=== PATIENT | male | born 1965 | race Caucasian/White ===

== ENCOUNTER → 2020-11-07 09:25 | Outpatient (CLI) | payer OTHER, SELFPAY | PROVIDERS: PCP Physician Assistant Medical; Referring Provider Physician Assistant Medical; Visit Provider Physician Assistant Medical | DX: M75.41 Impingement syndrome of right shoulder (principal); Z53.20 Procedure and treatment not carried out because of patient's decision for unspecified reasons ==

== ENCOUNTER → 2023-06-02 11:26 | Outpatient (CLI) | payer OTHER, SELFPAY ==
--- NOTE | 2023-06-04 04:04 | DI.NM.S_ITS ---
DATE OF SERVICE: 06/02/2023 PROCEDURE PERFORMED: Exercise treadmill stress and rest myocardial perfusion imaging with gating to assess ejection fraction and regional wall motion. ORDERING PROVIDER: Irasema Millard NP INDICATIONS: The patient is a 57-year-old obese, hypertensive male with an abnormal EKG. CARDIAC STRESS: The patient was able to exercise for 6 minutes 3 seconds on a standard Lm protocol, suggesting moderate to severely reduced exercise capacity with an RORY of +29%, achieving 7.0 METs. He had a normal heart rate and blood pressure response to exercise. He had no chest discomfort or other anginal symptoms but moderate exertional dyspnea. His resting ECG is normal with normal ST segments. There are no significant ST-segment shifts or arrhythmias with stress. At 4 minutes, 45 seconds of exercise at a heart rate of 150 BPM, 26.3 millicuries of technetium-99m Myoview was injected and he was imaged 15 minutes later using a gated SPECT acquisition protocol. The day prior while at rest, he had been injected with 25.8 millicuries of technetium- 99m Myoview and imaged 20 minutes later, again using a gated SPECT acquisition protocol. FINDINGS: 1. Raw data: There is fairly good myocardial tracer uptake although with some slight chest wall attenuation noted. The lung/heart ratio is normal at 0.37 with a normal TID ratio of 0.86. 2. Quantitated gated SPECT: Post-stress ejection fraction is estimated at 69% without any focal wall motion abnormality. The resting ejection fraction is estimated at 62% but visually appears identical to that of the post stress ejection fraction. The resting end-diastolic volume is at the upper limits of normal at 148 mL. 3. Myocardial perfusion imaging: Post-stress supine images shows a fairly normal myocardial perfusion pattern with a very subtle defect in the inferior wall that resolves on the prone images, consistent with diaphragmatic attenuation. There are no other perfusion defects. The resting images show an identical perfusion pattern without any areas of improvement. IMPRESSION: 1. Normal exercise nuclear perfusion study. 2. Mild fixed inferior defect that resolves on prone imaging, consistent with diaphragmatic attenuation artifact. There is no compelling evidence for any myocardial ischemia or previous myocardial infarction. 3. Normal left ventricular function without any focal wall motion abnormality. While left ventricular volumes are borderline increased, this is likely due to his large body size. 4. Moderately reduced exercise capacity without angina or ECG evidence of ischemia. Roxana Hoover - Patti/roby doc#: [id number]/job#: [id number] dd: 06/03/2023 17:07:00 dt: 06/04/2023 03:58:00 DICTATING MD/COPIES TO: Brody Weiss MD; Irasema Millard M.D. COPIES MNE: ELISA;
== END ==
PROVIDERS: PCP Physician Assistant Medical; Referring Provider Nurse Practitioner Family; Visit Provider Nurse Practitioner Family
DX: R94.31 Abnormal electrocardiogram [ECG] [EKG] (principal); R07.9 Chest pain, unspecified; I10 Essential (primary) hypertension; E66.01 Morbid (severe) obesity due to excess calories; Z68.41 Body mass index [BMI] 40.0-44.9, adult
CPT/HCPCS: 78452; 93017; A9502

== ENCOUNTER → 2023-07-14 10:42 | Outpatient (CLI) | payer OTHER, SELFPAY ==
--- NOTE | 2023-07-14 10:43 | DI.RAD.S_ITS ---
PROCEDURE: XR KNEE LT 3V INDICATIONS: Left knee pain TECHNIQUE: 3 views of the knee were acquired. COMPARISON: None. FINDINGS: Bones: No fractures or dislocations. No suspicious bony lesions. Tricompartmental arthritic change most severe medially. Soft tissues: Moderate joint effusion. No suspicious soft tissue calcifications. IMPRESSION: No visualized acute fracture or dislocation. However, if clinical concern and/or pain persist, short interval imaging followup in 7-10 days is recommended, as occult injury cannot be definitively excluded. Dictated by: Desiree Gaffney M.D. on 07/14/2023 at 13:46 Approved by: Desiree Gaffney M.D. on 07/14/2023 at 13:47
== END ==
PROVIDERS: Referring Provider Nurse Practitioner Family; Visit Provider Nurse Practitioner Family
DX: M25.562 Pain in left knee (principal)
CPT/HCPCS: 73562

== ENCOUNTER 2023-09-22 18:08 | Emergency (ER) | payer OTHER, SELFPAY ==
[2023-09-22] VITALS (14 sets, daily range): BP systolic 121–144; BP diastolic 66–88; PULSE 64–80; RESP 12–21; TEMP 37; O2SAT 94–98; BMI 40.5
--- NOTE | 2023-09-22 18:24 | DI.RAD.S_ITS ---
PROCEDURE: XR CHEST 1V INDICATIONS: chest pain TECHNIQUE: One view of the chest was acquired. COMPARISON: None. FINDINGS: Surgical changes and devices: None. Lungs and pleura: Lungs are clear. No pleural effusions or pneumothorax. Mediastinum: Mediastinal contours appear normal. Heart size is normal. Bones and chest wall: No suspicious bony lesions. Overlying soft tissues appear unremarkable. IMPRESSION: No acute cardiopulmonary abnormality is seen. Dictated by: Anton Ceja M.D. on 09/22/2023 at 19:31 Approved by: Anton Ceja M.D. on 09/22/2023 at 19:31
[2023-09-22 18:43] LABS: Add Manual Diff / Slide Review NO; Basophils Absolute Auto 100 /uL (0-100); Basophils Percent Auto 0.8 % (0-2); Eosinophils Absolute Auto 0 /uL (0-450); Eosinophils Percent Auto 0.4 % (2-4); Hematocrit 44.7 % (41-53); Hemoglobin 15.2 g/dL (13.5-17.5); Lymphocytes Absolute Auto 800 /uL (1100-4500); Lymphocytes Percent Auto 8.6 % (25-40); Mean Corpuscular Hemoglobin 31.6 PG (26-34); Mean Corpuscular Volume 93.1 fL (80-100); Monocytes Absolute Auto 600 /uL (0-900); Monocytes Percent Auto 6.3 % (3-14); Neutrophils Absolute Auto 7500 /uL (1500-7000); Neutrophils Percent Auto 83.9 % (50-75); Platelet Count 195 X10^3/uL (150-400); Red Cell Distribution Width 13.1 % (11.6-14.8); White Blood Cell Count 8.9 X10^3/uL (4.5-11.0)
[2023-09-22 18:49] LABS: INR 1.1 (0.9-1.3); Prothrombin Time 12.7 SECONDS (9.4-12.5)
[2023-09-22 18:52] LABS: PTT Partial Thromboplastin Tim 33 SECONDS (25.1-36.5)
[2023-09-22] MEDS: ONDANSETRON 4 MG/2 ML INJ IV (19:01)
[2023-09-22] MEDS: SODIUM CHLORIDE 0.9% 1,000 ML 1000 ML IV ×2 (19:02→23:15)
[2023-09-22 19:10] LABS: Alanine Aminotransferase 32 IU/L (<50); Albumin 4.7 g/dL (3.5-5.0); Albumin Globulin Ratio 1.5 (1.0-2.8); Alkaline Phosphatase 89 U/L (38-126); Aspartate Aminotransferase 29 IU/L (17-59); BUN Creatinine Ratio 20.5 (6-22); Bilirubin Total 0.8 mg/dL (0.2-1.3); Blood Urea Nitrogen 17 mg/dL (9-20); Calcium 9.6 mg/dL (8.4-10.2); Carbon Dioxide 28 mmol/L (22-32); Chloride 106 mmol/L (98-107); Creatine Kinase 73 U/L (55-170); Estimated Glomerular Filt Rate > 60 mL/min (>60); Globulin 3.2 g/dL (1.7-4.1); Glucose 123 mg/dL (70-100); HEMOLYSIS 18 (0-50); Lipase 45 U/L (23-300); Magnesium 2.2 mg/dL (1.6-2.3); Potassium 4.1 mmol/L (3.4-5.1); Sodium 140 mmol/L (137-145); Total Protein 7.9 g/dL (6.3-8.2)
[2023-09-22 19:21] LABS: Troponin I < 0.012 ng/mL (0.01-0.034)
--- NOTE | 2023-09-22 21:08 | PC.NURSE ---
Patient reports he wants to walk to the restroom. Patient stood at bedside with stand by assist and was swaying on feet for about 5 seconds before he was able to stand steadily. He attempted to use urinal after he was advised to not walk to the restroom. Patient sat back down after 15 seconds and states it was a false alarm. Reports room-spinning sensation when he turns his head. When lying down and not moving he does not have any room spinning sensation. No history of same, this started 2 days ago and has not been able to get out of bed until now. Reports he feels better after 1L of fluids and may have been dehydrated. Only recent change he reports is he just started meloxicam. Recently had a negative stress test.
--- NOTE | 2023-09-22 23:07 | ED.GENADULT ---
HPI - General Adult General Chief complaint: Dizziness Stated complaint: dizzy, unable to stand Time Seen by Provider: 09/22/23 22:58 Source: patient Mode of arrival: Wheelchair History of Present Illness HPI narrative: 57-year-old male with 2 days duration of loose stools without black or red color, nausea and vomiting x2 episodes without black or red color, feeling dizzy, also has some spinning vertigo-like symptoms to his dizziness. No injury or trauma to the head. He has some headache that is global, improving without specific treatment. No fevers or chills. He did recently start meloxicam medication, believes that this is the cause of his symptoms. He has no hives or itching or rash, no swelling to lips or tongue. He denies abdominal discomfort. He denies cough, chest pain, shortness of breath. Denies fevers, chills. NO focal weakness to face arms legs. No problems with speech, vision, senstaion. Related Data Previous Rx's Medication Instructions Recorded meclizine 25 mg tablet 25 mg PO TID dizziness #21 tabs 09/23/23 Allergies Allergy/AdvReac Type Severity Reaction Status Date / Time No Known Drug Allergies Allergy Unverified 07/14/23 10:22 Patient History Social History Smoking Status: Unknown if ever smoked Smoking Status: Unknown if ever smoked Substance Use Type: does not use Exam Initial Vital Signs Initial Vital Signs: Vital Signs Temperature 98.6 F 09/22/23 18:10 Pulse Rate 79 09/22/23 18:10 Respiratory Rate 14 09/22/23 18:10 Blood Pressure 143/88 H 09/22/23 18:10 Pulse Oximetry 95 09/22/23 18:10 Oxygen Delivery Method Room Air 09/22/23 18:10 Const General: cooperative HENMT Head: atraumatic Ears: TM's normal bilaterally Face and sinus: face symmetric Mouth: moist mucous membranes Eyes Conjunctivae: conjunctivae normal Sclera: sclerae normal Pupils: PERRL EOM: EOM intact bilaterally Neck Neck: normal visual inspection, trachea midline and No JVD Resp Effort & Inspection: normal respiratory effort, able to speak in complete sentences, no respiratory distress and no use of accessory muscles Auscultation: clear to auscultation bilaterally, no rales, no rhonchi and no wheezes Cardio Rate: regular rate Rhythm: regular rhythm Heart Sounds: no murmurs GI Palpation: soft and No tender Back/Spine/Pelvis Back: No CVA tenderness Cervical Spine: No pain with cervical ROM Skin General: no rashes or lesions noted and No petechiae Neuro General: patient alert and no focal motor deficits Speech: speech normal Other: Cranial nerves intact, good motor srength 5/5 upper and lower exremities, sensation intact to light touch face arms legs, normal finger to nose testing Extrem General: no clubbing, cyanosis or edema, no pedal edema and no calf tenderness Psych Mental Status: mental status grossly normal Attitude: cooperative Thought Content: normal Course Orders Ordered: Discontinued Medications Sodium Chloride (Normal Saline 0.9%) 1,000 mls @ 1,000 mls/hr IV BOLUS ONE Stop: 09/22/23 19:56 Last Infusion: 09/22/23 21:08 Dose: Infused Documented By: Admin: 09/22/23 19:02 Dose: 1,000 mls/hr Documented By: ALAYNA Sodium Chloride (Normal Saline 0.9%) 1,000 mls @ 1,000 mls/hr IV BOLUS ONE Stop: 09/23/23 00:05 Last Infusion: 09/23/23 00:22 Dose: Infused Documented By: Admin: 09/22/23 23:15 Dose: 1,000 mls/hr Documented By: COOKIE Meclizine HCl (Meclizine Hcl 12.5 Mg Tablet) 25 mg PO NOW ONE Stop: 09/22/23 23:07 Last Admin: 09/22/23 23:15 Dose: 25 mg Documented By: COOKIE Ondansetron HCl (Ondansetron 4 Mg/2 Ml Inj) 4 mg IV NOW ONE Stop: 09/22/23 18:58 Last Admin: 09/22/23 19:01 Dose: 4 mg Documented By: ALAYNA Vital Signs Vital signs: Vital Signs - 8 hr 09/22/23 18:10 09/22/23 18:15 09/22/23 18:15 Temperature 98.6 F Pulse Rate 79 80 Respiratory Rate 14 Blood Pressure 143/88 H 143/88 H Pulse Oximetry 95 95 Oxygen Delivery Method Room Air 09/22/23 18:30 09/22/23 18:34 09/22/23 18:34 Temperature Pulse Rate 77 76 Respiratory Rate Blood Pressure 133/79 Pulse Oximetry 94 94 Oxygen Delivery Method 05/16/24 19:00 09/22/23 19:00 09/22/23 19:30 Temperature Pulse Rate 71 66 Respiratory Rate Blood Pressure 134/71 Pulse Oximetry 95 97 Oxygen Delivery Method 09/22/23 19:30 09/22/23 20:00 09/22/23 20:00 Temperature Pulse Rate 70 Respiratory Rate Blood Pressure 144/81 H 141/77 H Pulse Oximetry 95 Oxygen Delivery Method 09/22/23 20:30 09/22/23 20:30 09/22/23 21:00 Temperature Pulse Rate 69 67 Respiratory Rate 12 Blood Pressure 136/76 Pulse Oximetry 95 96 Oxygen Delivery Method 09/22/23 21:00 09/22/23 21:30 09/22/23 21:30 Temperature Pulse Rate 66 Respiratory Rate 18 Blood Pressure 132/70 125/66 Pulse Oximetry 98 Oxygen Delivery Method 09/22/23 22:00 09/22/23 22:00 09/22/23 22:30 Temperature Pulse Rate 68 68 Respiratory Rate 15 13 Blood Pressure 121/71 Pulse Oximetry 97 98 Oxygen Delivery Method 09/22/23 22:30 09/22/23 23:00 09/22/23 23:00 Temperature Pulse Rate 72 Respiratory Rate 21 Blood Pressure 129/75 136/76 Pulse Oximetry 97 Oxygen Delivery Method 09/22/23 23:30 09/22/23 23:30 09/23/23 00:01 Temperature Pulse Rate 64 73 Respiratory Rate 15 23 Blood Pressure 136/72 Pulse Oximetry 98 97 Oxygen Delivery Method 09/23/23 00:02 09/23/23 00:02 09/23/23 00:30 Temperature Pulse Rate 75 66 Respiratory Rate 16 15 Blood Pressure 164/77 H Pulse Oximetry 98 98 Oxygen Delivery Method 09/23/23 00:31 09/23/23 00:31 09/23/23 01:00 Temperature Pulse Rate 67 69 Respiratory Rate 16 17 Blood Pressure 140/76 Pulse Oximetry 97 97 Oxygen Delivery Method 09/23/23 01:00 Temperature Pulse Rate Respiratory Rate Blood Pressure 152/83 H Pulse Oximetry Oxygen Delivery Method Medical Decision Making Differential Diagnosis Differential Diagnosis: dizziness dehydration due to diarrhea, labyrinthits, doubt posteror stroke Lab Data Lab results reviewed: Yes I reviewed the patient's lab results. 09/22/23 18:31 09/22/23 18:31 Labs: Lab Results 09/22/23 Range/Units 18:31 WBC 8.9 (4.5-11.0) X10^3/uL RBC 4.80 (4.5-5.9) X10^6/uL Hgb 15.2 (13.5-17.5) g/dL Hct 44.7 (41-53) % MCV 93.1 (80-100) fL MCH 31.6 (26-34) PG MCHC 34.0 (30-36) % RDW 13.1 (11.6-14.8) % Plt Count 195 (150-400) X10^3/uL Neut % (Auto) 83.9 H (50-75) % Lymph % (Auto) 8.6 L (25-40) % [place] % (Auto) 6.3 (3-14) % Eos % (Auto) 0.4 L (2-4) % Baso % (Auto) 0.8 (0-2) % Neut # (Auto) 7500 H (1927-6402) /uL Lymph # (Auto) 800 L (6333-6891) /uL [place] # (Auto) 600 (0-900) /uL Eos # (Auto) 0 (0-450) /uL Baso # (Auto) 100 (0-100) /uL PT 12.7 H (9.4-12.5) SECONDS INR 1.1 (0.9-1.3) APTT 33 (25.1-36.5) SECONDS Sodium 140 (137-145) mmol/L Potassium 4.1 (3.4-5.1) mmol/L Chloride 106 (98-107) mmol/L Carbon Dioxide 28 (22-32) mmol/L BUN 17 (9-20) mg/dL Creatinine 0.83 (0.66-1.25) mg/dL Estimated GFR > 60 (>60) mL/min BUN/Creatinine Ratio 20.5 (6-22) Glucose 123 H (70-100) mg/dL Calcium 9.6 (8.4-10.2) mg/dL Magnesium 2.2 (1.6-2.3) mg/dL Total Bilirubin 0.8 (0.2-1.3) mg/dL AST 29 (17-59) IU/L ALT 32 (<50) IU/L Alkaline Phosphatase 89 (38-126) U/L Total Creatine Kinase 73 (55-170) U/L Troponin I < 0.012 (0.01-0.034) ng/mL Total Protein 7.9 (6.3-8.2) g/dL Albumin 4.7 (3.5-5.0) g/dL Globulin 3.2 (1.7-4.1) g/dL Albumin/Globulin Ratio 1.5 (1.0-2.8) Lipase 45 (23-300) U/L Urine Dip Bedside Urine Glucose Negative Bedside Urine Bilirubin - Negative Bedside Urine Ketone + 15 Urine Specific [place] 1.015 Bedside Urine Occult Blood - Negative Bedside Urine pH 6 Bedside Urine Protein - Negative Bedside Urine Urobilinogen - Negative Bedside Urine Nitrite - Negative Bedside Urine Leukocytes - Negative Esterase Point of care testing: Urine Dip Bedside Urine Glucose Negative Bedside Urine Bilirubin - Negative Bedside Urine Ketone + 15 Urine Specific [place] 1.015 Bedside Urine Occult Blood - Negative Bedside Urine pH 6 Bedside Urine Protein - Negative Bedside Urine Urobilinogen - Negative Bedside Urine Nitrite - Negative Bedside Urine Leukocytes - Negative Esterase ECG Data Attestation: I personally reviewed and interpreted this ECG as follows: Interpretation: Normal sinus rhythm rate 63, no ST segment elevation/depression obvious, normal ID inerval, normal QRS interval, normal QTc interval MDM Narrative Medical decision making narrative: Dizziness after new meloxicam medication and reported non-melanotic non-red stools, also some component of slight vertigo with isolated head and body movements. Nonfocal neuro exam with good gait and [id number], doubt posterior acute stroke. Mild global headache further improved. Offered CT Head imaging, declined. Electrolytes negative. Hb normal. EKG unremakrable including inervals. Troponin negative. IVF bolus, IV zofran, PO meclizine given. Patient ambulated and took PO fluids well afer second liter IVF bolus. thinks the new meloxicam was cause of symptoms, avoid/discontinue for now. Possible viral illness with dehydration and labyrinthitis, symptomatically inproved. Home with , return precautions discussed. Critical Care Time Critical Care Time Critical Care Time: Yes Total Critical Care Time: 35 Attestation: The high probability of a clinically significant, sudden or life threatening deterioration of the [cardiopulmonary, neurologic] system(s) required my full and direct attention, intervention and personal management. The aggregate critical care time was [35] minutes. This time is in addition to time spent performing reported procedures but includes the following: [x] Data Review and interpretation [x] Patient assessment and monitoring of vital signs [x] Documentation [x] Medication orders and management Discharge Plan Departure Patient Disposition: Home Clinical Impression: Diarrhea, Vertigo, Vomiting, Dizziness Instructions: DI for Vomiting -- Adult, Nausea and Vomiting-Adult Activity Restrictions/Additional Instructions: Recent new medication meloxicam. Subsequent nausea and vomiting, also diarrhea, none of which seem to be bloody or black in color. Also some dizziness, particularly with head or body movements. We did discuss CT head/brain imaging, declined. Oral meclizine antihistamine given, which can be helpful for labyrinthitis inflammation of the middle ear system, if that is the cause for your dizziness, seems less likely a cerebellar stroke. Suspected component of dehydration by the amount of vomiting and diarrhea you been having, IV fluids given. Symptoms improved, able to ambulate, not fully resolve but able to ambulate any functional basis. Consider use of meclizine for the next few days. Encouraged oral hydration. For now perhaps avoid further doses of meloxicam in case that is related to your symptoms above. Recheck symptoms with your regular provider next couple of days. Return to this/nearest emergency department for any change worsening symptoms or any concerns prior Prescriptions: New meclizine 25 mg tablet 25 mg PO TID Qty: 21 0RF Referrals: Irasema Millard ARNP [Primary Care Provider] - Stand Alone Forms: Patient Portal/API
[2023-09-22] MEDS: MECLIZINE HCL 12.5 MG TABLET 25 MG PO (23:15)
[2023-09-23 00:01] VITALS: PULSE 73; RESP 23; O2SAT 97
[2023-09-23 00:02] VITALS: BP 164/77; PULSE 75; RESP 16; O2SAT 98
[2023-09-23 00:30] VITALS: PULSE 66; RESP 15; O2SAT 98
[2023-09-23 00:31] VITALS: BP 140/76; PULSE 67; RESP 16; O2SAT 97
[2023-09-23 01:00] VITALS: BP 152/83; PULSE 69; RESP 17; O2SAT 97
[2023-09-23 01:30] VITALS: BP 153/79; PULSE 72; RESP 16; O2SAT 99
== END 2023-09-23 01:39 | disposition home or self-care (01) ==
PROVIDERS: Emergency Provider Emergency Medicine; PCP Nurse Practitioner Family
DX: R19.7 Diarrhea, unspecified (principal); R42 Dizziness and giddiness; R11.10 Vomiting, unspecified
CPT/HCPCS: 36415; 71045; 80053; 81003; 82550; 83690; 83735; 84484; 85025; 85610; 85730; 93005; 93010; 96361; 96374; 99284; J2405

== ENCOUNTER → 2024-03-16 | Outpatient (CLI) | payer OTHER, SELFPAY ==
--- NOTE | 2024-03-16 15:37 | DI.MRI.S_ITS ---
PROCEDURE: MR KNEE LT WO CON INDICATIONS: CHRONIC PAIN IN BOTH KNEES TECHNIQUE: Noncontrast sagittal PD fast spin echo and T2 fast spin echo with fat saturation, sagittal 3-D FLASH with fat saturation; coronal T1 spin echo and PD fast spin echo with fat saturation, and axial PD fast spin echo with fat saturation through the knee. COMPARISON: [facility], CR, XR KNEE ARTHRITIC SERIES LT, 07/27/2023, 10:32. [facility], MR, MR KNEE RT WO CON, 03/16/2024, 15:53. FINDINGS: Image quality: Fair; there is excessive fat saturation on the fluid sensitive sequences, which limits assessment of tendon integrity to some extent. Bones: Extensive marrow edema is present around the anterior-medial tibial plateau secondary to a minimally depressed subchondral insufficiency fracture (03/26; 04/26). Subchondral cysts are present at the pseudoarticulating surfaces of the posterior tibia and fibular head (04/01) as well as the articulating surfaces of the patella (11/16). The bone marrow signal is otherwise normal. There is no other acute fracture or dislocation. Joints: There is a small knee joint effusion. There is mild knee osteoarthritis. There is a 0.7 cm in the posterior joint capsule medial to the posterior cruciate ligament (11/24). Gonzales's cyst: None. Menisci: There is a complex tear of the body and posterior horn of the medial meniscus with extension toward the posterior root attachment and 7 mm of meniscal body extrusion into the medial gutter (04/27). The lateral meniscus is normal. The posterior root attachments are otherwise normal. Cruciate ligaments: The anterior cruciate ligament is normal. The posterior cruciate ligament is normal. Collateral ligaments: The medial collateral ligament complex is normal, although there are chronic avulsions of the meniscofemoral and meniscotibial ligaments supporting the medial meniscus. The lateral collateral ligament complex is intermediate in signal. Popliteus Muscle/Tendon: The popliteus muscle and tendon are normal. Extensor mechanism: There is mild intermediate signal and thickening of the quadriceps tendon as well as the patellar tendon. The medial and lateral patellar retinacular attachments are normal. Articular cartilage: There is full-thickness cartilage loss in the weight-bearing medial compartment (04/27). Multifocal areas of surface fibrillation are present at the weight-bearing lateral compartment. Areas of partial thickness chondral loss and surface fibrillation are present at the patellofemoral compartment (7/15). Other: Mild prepatellar and infrapatellar subcutaneous edema. Partially identified superficial varicose veins. At that IMPRESSION: 1. Acute-subacute anterior-medial tibial plateau subchondral insufficiency fracture with associated reactive marrow edema. 2. Complex tear of the body and posterior horn of the medial meniscus with meniscal body extrusion. 3. Mild knee osteoarthritis with small knee joint effusion, 0.7 cm intra-articular body, and associated articular cartilage defects. 4. Chronic injuries involving the medial and lateral collateral ligament complexes. 5. Mild quadriceps tendinosis. 6. Mild patellar tendinosis. Dictated by: Rafita Swan M.D. on 03/19/2024 at 9:27 Approved by: Rafita Swan M.D. on 03/19/2024 at 9:54
--- NOTE | 2024-03-16 15:37 | DI.MRI.S_ITS ---
PROCEDURE: MR KNEE RT WO CON INDICATIONS: CHRONIC PAIN IN BOTH KNEES TECHNIQUE: Noncontrast sagittal PD fast spin echo and T2 fast spin echo with fat saturation, sagittal 3-D FLASH with fat saturation; coronal T1 spin echo and PD fast spin echo with fat saturation, and axial PD fast spin echo with fat saturation through the knee. COMPARISON: None. FINDINGS: Image quality: Excellent. Menisci: Peripheral displacement of medial meniscus bowing medial collateral ligament. Oblique tear involving posterior horn of medial meniscus is seen extending to superior articulating surface. The lateral meniscus is intact. The meniscal root ligaments appear intact. Cruciate ligaments: The anterior and posterior cruciate ligaments appear intact. Medial structures: The medial collateral ligament appears mildly thickened. Visualized portions of the pes anserinus tendons appear normal. No abnormal bursal fluid. Lateral structures: The lateral collateral ligament, long and short heads of the biceps femoris tendon appear intact. The popliteus tendon appears normal. Iliotibial band appears normal. Anterior structures: The quadriceps and patellar tendons appear intact. Patellar alignment is normal. No femoral trochlear dysplasia or ventral trochlear prominence. No edema in the infrapatellar fat pad. Bones and cartilage: Moderate tricompartmental osteoarthritis and chondromalacia more notably in medial femoral tibial compartment is seen. There is also moderate osteoarthritis involving proximal tibial fibular joint. No acute fracture or dislocation. No suspicious bony lesions. Joint space: There is small knee joint fluid. No Gonzales's cyst. Normal appearing synovial plicae are incidentally noted. IMPRESSION: 1. Moderate tricompartmental osteoarthritis. No acute fracture or dislocation. Moderate osteoarthritic changes involving proximal tibial fibular articulation. Small joint effusion, no loose bodies. 2. Oblique tear involving posterior horn of medial meniscus extending to superior articulating surface. No lateral meniscal tear. 3. Low-grade MCL sprain. 4. The cruciate ligaments are intact. Dictated by: Prashant Finn M.D. on 03/16/2024 at 22:59 Approved by: Prashant Finn M.D. on 03/16/2024 at 23:02
== END ==
PROVIDERS: PCP Nurse Practitioner Family; Referring Provider Nurse Practitioner Family; Visit Provider Nurse Practitioner Family
DX: S83.232A Complex tear of medial meniscus, current injury, left knee, initial encounter (principal); S83.241A Other tear of medial meniscus, current injury, right knee, initial encounter; S82.142A Displaced bicondylar fracture of left tibia, initial encounter for closed fracture; M17.0 Bilateral primary osteoarthritis of knee; S83.411A Sprain of medial collateral ligament of right knee, initial encounter; M25.461 Effusion, right knee; M25.462 Effusion, left knee; M25.561 Pain in right knee; M25.562 Pain in left knee; G89.29 Other chronic pain
CPT/HCPCS: 73721

== ENCOUNTER → 2024-05-25 10:49 | Outpatient (CLI) | payer OTHER, SELFPAY ==
--- NOTE | 2024-05-25 11:12 | EKG_ITS ---
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
[2024-05-25 11:13] LABS: Add Manual Diff / Slide Review NO; Basophils Absolute Auto 0 /uL (0-100); Basophils Percent Auto 0.9 % (0-2); Eosinophils Absolute Auto 100 /uL (0-450); Eosinophils Percent Auto 2.2 % (2-4); Hematocrit 44.5 % (41-53); Hemoglobin 15.1 g/dL (13.5-17.5); Lymphocytes Absolute Auto 900 /uL (1100-4500); Lymphocytes Percent Auto 20.7 % (25-40); Mean Corpuscular HGB Conc 34.1 % (30-36); Mean Corpuscular Hemoglobin 32.3 PG (26-34); Mean Corpuscular Volume 94.7 fL (80-100); Monocytes Absolute Auto 400 /uL (0-900); Monocytes Percent Auto 8.1 % (3-14); Neutrophils Absolute Auto 3100 /uL (1500-7000); Neutrophils Percent Auto 68.1 % (50-75); Platelet Count 190 X10^3/uL (150-400); Red Cell Distribution Width 13.1 % (11.6-14.8); White Blood Cell Count 4.5 X10^3/uL (4.5-11.0)
[2024-05-25 11:23] LABS: Hemoglobin A1C% w Est Avg Glu 5.6 % (4.0-6.0)
[2024-05-25 11:55] LABS: Appearance Urine UA CLEAR; Bilirubin Urine UA NEGATIVE (NEGATIVE); Color Urine UA YELLOW; Glucose Urine UA NEGATIVE (Negative); Ketones Urine UA NEGATIVE (NEGATIVE); Leukocyte Esterase Urine UA NEGATIVE (NEGATIVE); Nitrite Urine UA NEGATIVE (Negative); Occult Blood Urine UA NEGATIVE (Negative); Protein Urine UA NEGATIVE (Negative); Specific Gravity Urine UA <=1.005 (1.000-1.035); Urobilinogen Urine UA 0.2 E.U./dL (0.2)
[2024-05-25 11:56] LABS: Urine Volume 10mL (spun)
[2024-05-25 12:05] LABS: Bacteria Urine None Seen; Culture Indicated Urine Cult Not Indicated; RBC Urine None Seen (0-5/HPF); Squamous Epithelial Cell Urine None Seen (0-5/HPF); WBC Urine None Seen (0-5/HPF)
[2024-05-25 12:06] LABS: BUN Creatinine Ratio 20.9 (6-22); Blood Urea Nitrogen 18 mg/dL (9-20); Calcium 9.3 mg/dL (8.4-10.2); Carbon Dioxide 24 mmol/L (22-32); Chloride 106 mmol/L (98-107); Estimated Glomerular Filt Rate > 60 mL/min (>60); Glucose 140 mg/dL (80-110); HEMOLYSIS 98 (0-50); Potassium 4.4 mmol/L (3.4-5.1); Sodium 138 mmol/L (137-145)
== END ==
PROVIDERS: PCP Nurse Practitioner Family; Referring Provider Orthopaedic Surgery; Visit Provider Orthopaedic Surgery
DX: Z01.818 Encounter for other preprocedural examination (principal); Z01.812 Encounter for preprocedural laboratory examination; R73.9 Hyperglycemia, unspecified; N39.0 Urinary tract infection, site not specified
CPT/HCPCS: 36415; 80048; 81001; 83036; 85025; 93005

== ENCOUNTER → 2024-05-25 11:48 | Outpatient (CLI) | payer OTHER, SELFPAY ==
--- NOTE | 2024-05-25 | DI.US.S_ITS ---
PROCEDURE: US FINE NEEDLE ASPIRATION INDICATIONS: Nontoxic multinodular goiter TECHNIQUE: The indications, alternatives, benefits, risks, and complications of the procedure were explained to the patient. Written informed consent was obtained and placed in the chart. The thyroid region was examined sonographically and a site was chosen for ultrasound guided percutaneous sampling. The skin was prepared and draped in the usual fashion, and anesthetized with 1% lidocaine infiltrated from the skin down to the thyroid gland. Multiple passes were then performed, with contents emptied into an appropriate pathology specimen container. A bandage was applied to the area of access at completion of the study. COMPARISON: None. FINDINGS: Location(s) of lesion(s) sampled: Right and left lower pole thyroid nodules. [place]: 25 gauge hypodermic needles. Number of passes: 6 passes for each nodule. Medications: 1% lidocaine for local anaesthesia. Complications: None. IMPRESSION: Successful ultrasound-guided thyroid nodule fine needle aspiration, with cytology results pending. Please see chart below for management recommendations based on cytology results. [facility] ReportingRecommendationsNon-diagnostic* Repeat US-guided FNA, with on-site cytology evaluation if possible. * Repeated non-diagnostic nodules without high suspicion US features: close observation vs surgical consult. * Consider surgery if nodule has high suspicion US features, grows >20% in 2 dimensions on followup, or patient has clinical risk factors for malignancy. Benign* If nodule has high suspicion US features: repeat US and FNA within 12 months. * If nodule has low to intermediate suspicion US features: repeat US at 12-24 months. If nodule grows (20% increase in at least 2 dimensions, with minimal increase of 2 mm or >50% change in volume), or development of new suspicious US features, then repeat FNA or continue followup. * If nodule has very low suspicion US features: followup US at >24 months. Atypia of undetermined significance, follicular lesion of undetermined significanceRepeat FNA, molecular testing, followup US, or surgical consult.Follicular neoplasm, suspicious for follicular neoplasmSurgical consult; also consider molecular testing. Suspicious for malignancySurgical consult.MalignantSurgical consult. Dictated by: Prashant Finn M.D. on 05/25/2024 at 15:12 Approved by: Prashant Finn M.D. on 05/25/2024 at 15:12
--- NOTE | 2024-05-25 13:22 | PATH_ITS ---
Note [facility] Accession Number: [id number] TESTS RESULT FLAG UNITS REF RANGE LAB Clinician Provided Cytology Information No. of containers..01 Other (Miscellaneous) No. of containers..02 Previously Prepared Cytology Slide Source: RIGHT THYROID NODULE #3 (A) DIAGNOSIS: RIGHT THYROID NODULE #3 (A), FINE NEEDLE ASPIRATION. BENIGN. BETHESDA CATEGORY II. SPECIMEN CONSISTS OF BENIGN FOLLICULAR CELLS, HEMOSIDERIN-LADEN MACROPHAGES AND COLLOID. THIS PATTERN IS CONSISTENT WITH FOLLICULAR NODULAR DISEASE. Pathologist ICD10: 01 E04.1 Signed out by: Jace Chau MD, Pathologist NPI- [id number] Performed by: Romulo Bolanos, Beater Boss ([facility]) Gross description: 30 CC, PINK, CLEAR RECIEVED: IN CYTOLYT WITH 6 ALCOHOL FIXED AND 6 QUICK STAINED SLIDES ALSO 1 RNA VIAL WILL ON 12-14-2024.VO /VDU 05/28/2024 0854 [facility] FLAG LEGEND: L-Low Normal,H-High Normal,LL-Alert Low,HH-Alert High <-Panic Low,>-Panic High,A-Abnormal,AA-Critical Abnormal Performed at: 01 =Z [facility], [place] [address] Dago Mayen MD, Performed at: [address], [place], [place] [id number] MD Dago Mayen MD Phone: [phone]
--- NOTE | 2024-05-25 13:23 | PATH_ITS ---
Note [facility] Accession Number: [id number] TESTS RESULT FLAG UNITS REF RANGE LAB Clinician Provided Cytology Information No. of containers..01 Other (Miscellaneous) No. of containers..02 Previously Prepared Cytology Slide Source: LEFT THYROID NODULE #6 (B) DIAGNOSIS: LEFT THYROID NODULE #6 (B), FINE NEEDLE ASPIRATION. INCONCLUSIVE. BETHESDA CATEGORY III. ATYPIA OF UNDETERMINED SIGNIFICANCE, SEE COMMENT. COMMENT: EXAMINATION OF THE SMEARS REVEALS A MILDLY CELLULAR ASPIRATE, COMPOSED OF COLLOID, MACROPHAGES AND BENIGN FOLLICULAR GROUPS WITH FOCAL HURTHLE CELL CHANGES. IN ADDITION, THERE ARE RARE GROUPS WHERE MILD NUCLEAR ENLARGEMENT, OVERLAPPING, PALLOR AND RARE NUCLEAR MEMBRANE IRREGULARITIES (GROOVES) ARE NOTED. INTRANUCLEAR PSEUDOINCLUSIONS ARE NOT SEEN. THE RISK OF MALIGNANCY IN THE BETHESDA CATEGORY III IS 5-15%. ADDITIONAL MOLECULAR TESTING WILL BE PERFORMED ON THE SUBMITTED RNA VIAL FOR FURTHER EVALUATION. Pathologist ICD10: E04.2 Signed out by: Jace Chau MD, Pathologist NPI- [id number] Performed by: Romulo Bolanos, Loading Inspector ([facility]) Gross description: 01 30 CC, PINK, CLEAR RECIEVED: IN CYTOLYT WITH 6 ALCOHOL FIXED AND 6 QUICK STAINED SLIDES ALSO 1 RNA VIAL WILL ON 12-14-2024.VO /VDU 05/28/2024 0855 [facility] FLAG LEGEND: L-Low Normal,H-High Normal,LL-Alert Low,HH-Alert High <-Panic Low,>-Panic High,A-Abnormal,AA-Critical Abnormal Performed at: 01 =Z [facility], [place] [address] Dago Mayen MD, Performed at: [address], [place], [place] [id number] MD Dago Mayen MD Phone: [phone]
== END ==
PROVIDERS: PCP Nurse Practitioner Family; Referring Provider Nurse Practitioner Family; Visit Provider Nurse Practitioner Family
DX: Z01.818 Encounter for other preprocedural examination (principal); E04.2 Nontoxic multinodular goiter; E05.90 Thyrotoxicosis, unspecified without thyrotoxic crisis or storm; Z01.812 Encounter for preprocedural laboratory examination; R73.9 Hyperglycemia, unspecified; N39.0 Urinary tract infection, site not specified
CPT/HCPCS: 10005; 10006; 36415; 80048; 81001; 83036; 85025; 93005; 93010

== ENCOUNTER → 2024-11-02 08:04 | Outpatient (CLI) | payer OTHER, SELFPAY ==
--- NOTE | 2024-11-02 08:04 | DI.CT.S_ITS ---
PROCEDURE: CT SINUS SCREEN WO CON INDICATIONS: Chronic sinusitis TECHNIQUE: Noncontrast 3.0 mm axial images acquired from the frontal sinuses to the mid- sella, with coronal and sagittal reformats. For radiation dose reduction, the following was used: automated exposure control, adjustment of mA and/or kV according to patient size. COMPARISON: [facility], CT, SINUS SCREEN WO CONTRAST, 07/16/2014, 9:22. FINDINGS: Image quality: Excellent. Maxillary Sinuses: No bony remodeling or destruction. Sinuses are clear. Ethmoid Air Cells: Mild mucoperiosteal thickening bilat there ethmoid sinuses and at the frontoethmoidal recesses measuring up to 3 millimeters thickness decreased compared to the prior exam. No bony remodeling or destruction. Sphenoid Sinuses: No bony remodeling or destruction. Sinuses are clear. Frontal Sinuses: No bony remodeling or destruction. Sinuses are clear. Ostiomeatal Complexes: Ostiomeatal complexes are patent. Miscellaneous: Visualized intra-orbital contents are normal. No akila bullosa or paradoxical turbinate curvature. No nasal septal deviation. IMPRESSION: Mild ethmoid mucoperiosteal thickening and decreased compared to the prior exam. Dictated by: David Marie M.D. on 11/02/2024 at 8:40 Approved by: David Marie M.D. on 11/02/2024 at 8:44
== END ==
PROVIDERS: PCP Family Medicine; Referring Provider Family Medicine; Visit Provider Family Medicine
DX: J32.2 Chronic ethmoidal sinusitis (principal)
CPT/HCPCS: 70486